=== PATIENT | male | born 1975 | race Hispanic/Latino ===

== ENCOUNTER 2017-04-23 09:39 | Emergency (ER) | payer BC ==
[2017-04-23 09:52] VITALS: BMI 26.6
[2017-04-23] MEDS ORDERED: Lidocaine/Epi 1% 1:100000 20 ML IJ ONE (10:00)
[2017-04-23] MEDS ORDERED: Lidocaine 1% w Epi 1:100,000 Inj ONE (10:05)
--- NOTE | 2017-04-23 10:58 | ED PDOC ---
Upper Extremity Pain/Injury Time Seen by Provider: 04/23/17 09:57 Chief Complaint (Nursing): Abnormal Skin Integrity Chief Complaint (Provider): Right forearm laceration History Per: Patient History/Exam Limitations: no limitations Onset/Duration Of Symptoms: Days (earlier today) Current Symptoms Are (Timing): Still Present Additional Complaint(s): Arsalan is a 41 y/o male who presents to the ED for laceration repair. Patient states that he was volunteering this morning and moving an old mirror, for which a sharp edge struck his right forearm sustaining a laceration to the right middle forearm. Denies having any other injuries, weakness, or numbness to the arm/hand. Last Tetanus shot unknown. PMD: Unknown Past Medical History Reviewed: Historical Data, Nursing Documentation, Vital Signs - Medical History PMH: No Chronic Diseases - Surgical History Surgical History: No Surg Hx - Family History Family History: States: Unknown Family Hx - Social History Current smoker - smoking cessation education provided: No Alcohol: None Drugs: Denies - Home Medications Home Medications: Ambulatory Orders Medication Instructions Recorded Cephalexin [cephalexin] 500 mg PO BID #8 cap 04/23/17 - Allergies Allergies/Adverse Reactions: Allergies Allergy/AdvReac Type Severity Reaction Status Date / Time No Known Allergies Allergy Verified 04/23/17 09:50 Review of Systems ROS Statement: Except As Marked, All Systems Reviewed And Found Negative Skin: Positive for: Other (Laceration to right mid forearm) Neurological: Negative for: Weakness, Numbness, Dizziness, Other (Tingling) Physical Exam - Reviewed Nursing Documentation Reviewed: Yes Vital Signs Reviewed: Yes - Physical Exam Appears: Positive for: Well, Non-toxic, No Acute Distress Extremity: Positive for: Normal ROM (Hand and wrist appear normal), Other (4.5 cm linear laceration in the mid right forearm, ventral, with no tendon or muscle visible however there is disruption of the subcutaneous fat and tissue) Neurologic/Psych: Positive for: Alert, Oriented Medical Decision Making Medical Decision Making: Time: 10:00 Clinical Impression: Laceration of arm Plan: --Laceration was repaired without difficulty --Patient provided with instructions on wound care --Tetanus booster given --Given moderate depth, will prescribe Keflex for 4 days Upon provider evaluation patient is medically stable, and requires no further treatment in the ED at this time. Patient will be discharged home with Rx for Keflex x 4 days BID. Counseling was provided and all questions were answered regarding diagnosis and need to follow up for wound check in 2-3 days. There is agreement to discharge plan. Return if symptoms persist or worsen. Scribe Attestation: Documented by Edna Sumner, acting as a scribe for Enrrique Beal III, DO Provider Scribe Attestation: All medical record entries made by the Scribe were at my direction and personally dictated by me. I have reviewed the chart and agree that the record accurately reflects my personal performance of the history, physical exam, medical decision making, and the department course for this patient. I have also personally directed, reviewed, and agree with the discharge instructions and disposition. Procedures - Laceration/Wound Repair Laceration to right mid forearm Wound Length (cm): 4.5 Wound's Depth, Shape: linear Irrigated w/ Saline (ccs): 500 (sterile water) Anesthesia: Lidocaine w/ Epi Volume Anesthetic (ccs): 6 Wound Repaired With: Sutures Suture Size/Type: 4:0, nylon Number of Sutures: 7 (7 interrupted 4:0 Nylon on the skin with good wound margin approximation) Deep Layer Suture Size/Type: 4:0 Number Deep Layer Sutures: 2 (2 subcutaneous 4:0 micro to approximate subcutaneous tissue) Wound Complexity: Intermediate Sterile Dressing Applied?: Yes (Given moderate depth, covered with Keflex) Disposition - Clinical Impression Clinical Impression: Laceration of arm - Patient ED Disposition Is Patient to be Admitted: No Counseled Patient/Family Regarding: Studies Performed, Diagnosis, Need For Followup - Disposition Referrals: Deric Alvarez MD [Staff Provider] - Disposition: Routine/Home Disposition Time: 10:45 Condition: STABLE Additional Instructions: Followup for wound check in 2-3 days. Suture removal in 7-8 days. Keep clean and dry x3 days, then gentle rinse with soap/water daily. Use bacitracin to wound margins daily. Prescriptions: Cephalexin [cephalexin] 500 mg PO BID #8 cap Instructions: Care For Your Stitches (ED), Laceration (ED) Forms: Thingies (Mongolian)
[2017-04-23 10:59] VITALS: BP 128/76; PULSE 78; RESP 18; TEMP 987.5; O2SAT 98
== END 2017-04-23 11:21 | disposition home or self-care (01) ==
LOC: H.ER 09:39
DX: S41.111A Laceration without foreign body of right upper arm, initial encounter (principal); W25.XXXA Contact with sharp glass, initial encounter; Y92.89 Other specified places as the place of occurrence of the external cause